=== PATIENT | female | born 1955 | race Caucasian/White ===

== ENCOUNTER 2021-03-03 08:27 | Day surgery (SDC) | payer MEDICARE, OTHER ==
[2021-02-23 12:03] LABS: BASOPHILS % (AUTO) 0.2 % (0-1); EOSINOPHILS % (AUTO) 0.8 % (0-6); HEMATOCRIT 38.7 % (35.0-45.0); HEMOGLOBIN 12.9 g/dl (12.0-16.0); LYMPHOCYTES # (AUTO) 1.5 X10'3 (1.1-4.8); LYMPHOCYTES % (AUTO) 27.4 % (21-51); MEAN CORPUSCULAR HGB CONC 33.4 g/dL (33.0-36.5); MEAN PLATELET VOLUME 8.5 FL (7.4-10.4); MONOCYTES # (AUTO) 0.3 X10'3 (0-0.9); MONOCYTES % (AUTO) 5.1 % (2-12); NEUTROPHILS # (AUTO) 3.7 X10'3 (1.8-7.7); NEUTROPHILS % (AUTO) 66.5 % (42-75); PLATELET COUNT 237 X10'3 (140-440); RED BLOOD COUNT 4.17 X10'6 (4.20-5.60); RED CELL DISTRIBUTION WIDTH 13.4 % (11.5-14.5); WHITE BLOOD COUNT 5.6 X10'3 (4.5-11.0)
[2021-02-23 12:22] LABS: ALANINE AMINOTRANSFERASE 49 U/L (12-78); ALBUMIN/GLOBULIN RATIO 1.1 (1.1-1.5); ALKALINE PHOSPHATASE 90 IU/L (46-116); ANION GAP 6 (8-16); ASPARTATE AMINO TRANSFERASE 26 U/L (10-37); BILIRUBIN,TOTAL 0.4 MG/DL (0.1-1.0); BLOOD UREA NITROGEN 18 MG/DL (7-18); BUN/CREATININE RATIO 13.1 (6.6-38.0); CALCIUM 9.7 MG/DL (8.5-10.1); CHLORIDE 105 MMOL/L (99-107); CREATININE 1.37 MG/DL (0.40-0.90); GLUCOSE 105 MG/DL (70-104); POTASSIUM 4.3 MMOL/L (3.5-5.1); SODIUM 141 MMOL/L (135-145); TOTAL CARBON DIOXIDE 30.2 MMOL/L (24-32); TOTAL PROTEIN 7.5 G/DL (6.4-8.2); eGFR 39 ML/MIN
[2021-02-23 12:23] LABS: APTT 26 SECONDS (22-32)
[~2021-03-03] VITALS: Ht 167.6 cm; Wt 102.9 kg
[2021-03-03] VITALS (13 sets, daily range): BP systolic 132–167; BP diastolic 65–86
[2021-03-03] MEDS ORDERED: LORazepam 0.5 MG tablet PO PRN (08:45)
[2021-03-03] MEDS ORDERED: normal saline 1,000 ML IV SCH (08:45)
[2021-03-03] MEDS ORDERED: diphenhydrAMINE 25mg capsule PO PRN (08:45)
[2021-03-03] MEDS ORDERED: nitroGLYCERIN 0.4mg SUBLingual tab SL PRN (08:45)
[2021-03-03] MEDS ORDERED: Vitamin D3 PO (08:55)
[2021-03-03] MEDS ORDERED: LEVO125T PO (08:55)
[2021-03-03] MEDS ORDERED: MULT-1085 PO (08:55)
[2021-03-03] MEDS ORDERED: ATOR10TA70 PO (08:55)
[2021-03-03] MEDS ORDERED: midazolam 1 mg/ML 2ml injection ONE ×2 (10:20→10:56)
[2021-03-03] MEDS ORDERED: iohexol 350MG/ML 100ml bottle IV ONE (10:20)
[2021-03-03] MEDS ORDERED: iohexol 350 MG/ML 50ML vial IV ONE (10:20)
[2021-03-03] MEDS ORDERED: LIDOcaine 1% (10mg/ml)w/preservative injection 20ml MDV ONE (10:20)
[2021-03-03] MEDS ORDERED: fentaNYL/PF 50MCG/1 ML 2ML syringe ONE (10:20)
[2021-03-03] MEDS ORDERED: HYDROcodone/acetaminophen 10/325mg tab PO PRN (11:55)
[2021-03-03] MEDS ORDERED: acetaminophen 325mg tablet PO PRN (11:55)
[2021-03-03] MEDS ORDERED: proCHLORperazine 10 MG/2 ml inj IV PRN (11:55)
[2021-03-03] MEDS ORDERED: OXAZEpam 15mg capsule PO PRN (11:55)
[2021-03-03] MEDS ORDERED: HYDROcodone/acetaminophen 5mg/325mg tablet PO PRN (11:55)
[2021-03-03] MEDS ORDERED: ondansetron/PF 4mg/2ml inj IV PRN (11:55)
== END 2021-03-03 17:55 | disposition home or self-care (01) ==
LOC: SSTAY O 08:27
PROVIDERS: ATTEND Internal Medicine Cardiovascular Disease
DX: R94.39 Abnormal result of other cardiovascular function study (principal); R06.09 Other forms of dyspnea; I25.10 Atherosclerotic heart disease of native coronary artery without angina pectoris; E03.9 Hypothyroidism, unspecified; E78.5 Hyperlipidemia, unspecified; I10 Essential (primary) hypertension; Z79.01 Long term (current) use of anticoagulants; Z79.899 Other long term (current) drug therapy; Z88.2 Allergy status to sulfonamides
CPT/HCPCS: 36415; 71046; 80053; 85025; 85610; 85730; 93005; 93458; 99152; C1760; C1769; J1644; J2250; J3010; J3490; J7030; Q0163; Q9967; A4620; A6258

== ENCOUNTER 2021-07-06 05:32 | Inpatient (IN) | payer MEDICARE, OTHER ==
[2021-06-29 11:21] LABS: BASOPHILS % (AUTO) 0.2 % (0-1); EOSINOPHILS # (AUTO) 0.1 X10'3 (0-0.9); EOSINOPHILS % (AUTO) 1.1 % (0-6); LYMPHOCYTES # (AUTO) 1.3 X10'3 (1.1-4.8); LYMPHOCYTES % (AUTO) 24.2 % (21-51); MEAN CORPUSCULAR HEMOGLOBIN 31.4 PG (27.0-31.0); MEAN CORPUSCULAR HGB CONC 34.4 g/dL (33.0-36.5); MEAN PLATELET VOLUME 8.6 FL (7.4-10.4); MONOCYTES # (AUTO) 0.3 X10'3 (0-0.9); MONOCYTES % (AUTO) 5.5 % (2-12); NEUTROPHILS # (AUTO) 3.8 X10'3 (1.8-7.7); PRE OP HEMATOCRIT 37.6 % (35.0-45.0); PRE OP PLATELET COUNT 223 X10'3 (140-440); RED BLOOD COUNT 4.13 X10'6 (4.20-5.60); RED CELL DISTRIBUTION WIDTH 13.8 % (11.5-14.5)
[2021-06-29 11:48] LABS: ALBUMIN 4.2 G/DL (3.4-5.0); ALBUMIN/GLOBULIN RATIO 1.4 (1.1-1.5); ALKALINE PHOSPHATASE 90 IU/L (46-116); BLOOD UREA NITROGEN 20 MG/DL (7-18); CALCIUM 9.2 MG/DL (8.5-10.1); CHLORIDE 104 MMOL/L (99-107); PRE OP ALT 47 U/L (30-65); PRE OP ANION GAP 8 (8-16); PRE OP AST 29 U/L (10-37); PRE OP BILIRUB, TOTAL 0.4 MG/DL (0.0-1.0); PRE OP GLUCOSE 98 MG/DL (70-104); PRE OP POTASSIUM 3.9 MMOL/L (3.4-5.1); PRE OP SODIUM 139 MMOL/L (135-145); TOTAL CARBON DIOXIDE 27.4 MMOL/L (24-32); TOTAL PROTEIN 7.3 G/DL (6.4-8.2); eGFR 72 ML/MIN
[2021-07-06] VITALS (31 sets, daily range): BP systolic 89–158; BP diastolic 47–96
[~2021-07-06] VITALS: Ht 167.6 cm; Wt 102.3 kg
[~2021-07-06 05:32] MED LIST: ATOR10TA70 PO; LEVO125T PO; LOSA50TA3 PO; Vitamin D3 PO; ceFAZolin inj. 2,000 MG in dextrose 5%-water 100 ML IV ONE; famotidine 20mg tablet PO ONE; ringers solution, lacted 1,000 ML IV SCH; tranexamic acid 650mg tablet PO ONE; vancomycin/NS 1 GM in NS 250 ML IV ONE
[2021-07-06] MEDS ORDERED: tranexamic acid 650mg tablet PO ONE ×2 (06:30)
[2021-07-06] MEDS ORDERED: ketorolac trometh. 30mg/ml inj. ONE (06:56)
[2021-07-06] MEDS ORDERED: ROPIVAcaine 0.5% (5mg/ml) 30ml vial ONE ×3 (06:56→08:31)
[2021-07-06] MEDS ORDERED: tetracaine 1% (10mg/ml) pres. free inj. ONE (07:07)
[2021-07-06] MEDS ORDERED: MIDAZolam 1mg/ml 10ml vial ONE (07:10)
[2021-07-06] MEDS ORDERED: morphine /PF 1mg/ml 10ml inj. ONE (07:11)
[2021-07-06] MEDS ORDERED: morphine 2 MG/ML inj. syringe IV PRN (07:15)
[2021-07-06] MEDS ORDERED: diphenhydrAMINE 50 mg/ml inj IV PRN (07:15)
[2021-07-06] MEDS ORDERED: ringers solution, lacted 1,000 ML IV SCH (07:15)
[2021-07-06] MEDS ORDERED: fentaNYL/PF 50MCG/1 ML 2ML syringe IV PRN ×2 (07:15)
[2021-07-06] MEDS ORDERED: morphine 4 MG/ML inj SYRINge IV PRN (07:15)
[2021-07-06] MEDS ORDERED: ondansetron/PF 4mg/2ml inj IV PRN ×3 (07:15→09:55)
[2021-07-06] MEDS ORDERED: naloxone 0.4 mg/ml inj IV PRN ×2 (07:15→09:55)
[2021-07-06] MEDS ORDERED: hydrALAZINE 20mg/ml inj. IV PRN (07:15)
[2021-07-06] MEDS ORDERED: labetalol 20mg/4ml (5mg/ml) syringe IV PRN (07:15)
[2021-07-06] MEDS ORDERED: labetalol 20mg/4ml (5mg/ml) syringe IV ONE (07:19)
[2021-07-06] MEDS ORDERED: dexamethasone sod phosphate 4mg/ml inj. ONE (08:32)
[2021-07-06] MEDS ORDERED: ROPIVAcaine 0.5% (5mg/ml) 30ml vial IJ ONE (08:40)
[2021-07-06] MEDS ORDERED: ketorolac trometh. 30mg/ml inj. IV ONE (08:43)
[2021-07-06] MEDS ORDERED: hydrALAZINE 20mg/ml inj. IV ONE (09:03)
[2021-07-06] MEDS ORDERED: HYDROmorphone inj. 0.5 MG/0.5 ML DISP.SYRIN IV PRN (09:55)
[2021-07-06] MEDS ORDERED: oxyCODONE IR 5mg (immed. release) tablet PO PRN ×2 (09:55)
[2021-07-06] MEDS ORDERED: acetaminophen 325mg tablet PO PRN (09:55)
[2021-07-06] MEDS ORDERED: diphenhydrAMINE 25mg capsule PO PRN ×2 (09:55)
[2021-07-06] MEDS ORDERED: magnesium hydroxide 30ml (MOM) UD suspension PO PRN (09:55)
[2021-07-06] MEDS ORDERED: bisacodyl 10mg suppository rectal RC PRN (09:55)
[2021-07-06] MEDS ORDERED: HYDROmorphone 1 mg/ml syringe IV PRN (09:55)
--- NOTE | 2021-07-06 09:57 | NUR ---
Received from OR [facility] , accompanied by Anesthesiologist DR RIVERA and report given by Anesthesiolgist. PT PRESENTS WITH PIV 18G RIGHT HAND, LEFT KNEE WRAP WITH POWDER PACK, SANCHEZ CATHETER, VSS. Addendum: 07/06/21 at 1015 by Poly Mtz RN, RN Amended: Links added.
[2021-07-06] MEDS ORDERED: HYDR-3972 PO (12:33)
[2021-07-06] MEDS ORDERED: LOSA50TA64 PO (12:33)
--- NOTE | 2021-07-06 12:34 | NUR ---
PT SITTING UP IN BED EATING ICE CHIPS. PT REPORTS PAIN 0. REGULAR DIET ORDERED FOR PT, LUNCH TRAY SITTING ON PT TRAY TABLE, PT REPORTS SHE WOULD LIKE TO WAIT ON EATING LUNCH. Addendum: 07/06/21 at 1235 by Poly Mtz RN, RN Amended: Links added.
[2021-07-06] MEDS ORDERED: IBUP-1985 PO (12:38)
[2021-07-06] MEDS ORDERED: ASPI-524 PO (12:41)
[2021-07-06] MEDS ORDERED: proCHLORperazine 10 MG/2 ml inj IV ONE (13:25)
[2021-07-06] MEDS: acetaminophen 325mg tablet PO SCH ×2 (14:00→21:06)
[2021-07-06] MEDS ORDERED: ACET-75 PO (14:48)
--- NOTE | 2021-07-06 14:58 | NUR ---
Received patient report via phone from Poly ferguson RN. Will assume patient care when patient comes to the floor. Room still being cleaned will call when room is done.
--- NOTE | 2021-07-06 15:27 | NUR ---
Report called to receiving nurse HENRIQUE HERNANDEZ. Transferred via [facility]OS[facility] BED TO ROOM 401. PT Belongings 2 BAGS SENT WITH PT TO ROOM 401 WITH READING GLASSES. BED IN LOW LOCKED POSITION WITH CALL LIGHT IN REACH AND VITALS MACHINE HOOKED UP TO PT. HENRIQUE HERNANDEZ AT BEDSIDE. Special Issues communicated to receiving nurse. Addendum: 07/06/21 at 1537 by Poly Mtz RN RN Amended: Links added.
[2021-07-06] MEDS: ceFAZolin/D5W- 1GM premix 50 ML IV SCH (16:42)
[2021-07-06] MEDS: potassium cl 20mEq in 1/2 NS 1,000 ML IV SCH (17:55)
--- NOTE | 2021-07-06 18:42 | NUR ---
Problems reprioritized. Patient report given, questions answered & plan of care reviewed with Danelle HERNANDEZ.
[2021-07-06] MEDS ORDERED: vancomycin/NS 1 GM ADD-VANTAGE 250 ML IV SCH (20:00)
[2021-07-06] MEDS ORDERED: sennosides 8.6mg tablet PO SCH (21:00)
[2021-07-07] MEDS: ceFAZolin/D5W- 1GM premix 50 ML IV SCH (00:43)
[2021-07-07] MEDS: potassium cl 20mEq in 1/2 NS 1,000 ML IV SCH ×2 (01:55→09:55)
[2021-07-07] MEDS: acetaminophen 325mg tablet PO SCH ×2 (02:04→08:34)
[2021-07-07 06:00] VITALS: BP 115/69
[2021-07-07 06:36] LABS: BASOPHILS % (AUTO) 0 % (0-1); EOSINOPHILS % (AUTO) 0 % (0-6); HEMATOCRIT 32.3 % (35.0-45.0); LYMPHOCYTES # (AUTO) 1.2 X10'3 (1.1-4.8); LYMPHOCYTES % (AUTO) 13.5 % (21-51); MEAN CORPUSCULAR HEMOGLOBIN 31.4 PG (27.0-31.0); MEAN CORPUSCULAR HGB CONC 34.2 g/dL (33.0-36.5); MEAN CORPUSCULAR VOLUME 91.7 FL (78-98); MEAN PLATELET VOLUME 8.9 FL (7.4-10.4); MONOCYTES # (AUTO) 0.5 X10'3 (0-0.9); NEUTROPHILS # (AUTO) 7.1 X10'3 (1.8-7.7); NEUTROPHILS % (AUTO) 80.5 % (42-75); PLATELET COUNT 227 X10'3 (140-440); RED BLOOD COUNT 3.52 X10'6 (4.20-5.60); RED CELL DISTRIBUTION WIDTH 13.7 % (11.5-14.5); WHITE BLOOD COUNT 8.9 X10'3 (4.5-11.0)
[2021-07-07 07:04] LABS: ANION GAP 7 (8-16); CHLORIDE 107 MMOL/L (99-107); SODIUM 141 MMOL/L (135-145); TOTAL CARBON DIOXIDE 26.6 MMOL/L (24-32)
[2021-07-07] MEDS ORDERED: levoTHYROXINE 125mcg tablet PO SCH (08:00)
[2021-07-07] MEDS ORDERED: INTLU PO SCH (08:00)
[2021-07-07] MEDS ORDERED: atorvastatin 10mg tablet PO SCH (08:00)
[2021-07-07] MEDS ORDERED: losartan 50mg tablet PO SCH (08:00)
[2021-07-07] MEDS ORDERED: aspirin 325mg tablet PO SCH (08:30)
[2021-07-07 10:00] VITALS: BP 145/81
[2021-07-07] MEDS ORDERED: celeCOXIB 100mg capsule PO SCH (20:00)
[2021-07-08] MEDS ORDERED: acetaminophen 325mg tablet PO PRN (09:55)
== END 2021-07-07 13:30 | disposition home or self-care (01) | DRG 470 ==
LOC: PAS IN 05:32 → EDSTATUS 07:30 → ORTHO 4S 15:40
PROVIDERS: ADMIT Orthopaedic Surgery; ATTEND Orthopaedic Surgery
PROC: 8E0YXBZ Computer Assisted Procedure of Lower Extremity (ICD-10-PCS; 2021-07-06)
PROC: 8E0Y0CZ Robotic Assisted Procedure of Lower Extremity, Open Approach (ICD-10-PCS; 2021-07-06)
PROC: 3E0T3BZ Introduction of Anesthetic Agent into Peripheral Nerves and Plexi, Percutaneous Approach (ICD-10-PCS; 2021-07-06)
PROC: 3E0T33Z Introduction of Anti-inflammatory into Peripheral Nerves and Plexi, Percutaneous Approach (ICD-10-PCS; 2021-07-06)
PROC: 0SRD0J9 Replacement of Left Knee Joint with Synthetic Substitute, Cemented, Open Approach (ICD-10-PCS; principal; 2021-07-06 07:19)
DX: M17.12 Unilateral primary osteoarthritis, left knee (principal); D62 Acute posthemorrhagic anemia; E66.01 Morbid (severe) obesity due to excess calories; Z68.36 Body mass index [BMI] 36.0-36.9, adult; Z79.899 Other long term (current) drug therapy
CPT/HCPCS: 36415; 80051; 80053; 82948; 84443; 85025; 87081; 97110; 97116; 97161; A4215; A4618; A7000; C1713; C1758; C1776; G0378; J0360; J0690; J0780; J1100; J1885; J2250; J2274; J2405; J2795; J3370; J3490; J7060; J7120; U0003; U0005